=== PATIENT | female | born 1980 | race Asian ===

== ENCOUNTER 2016-10-03 07:40 | Inpatient (IN) | payer SELFPAY ==
[~2016-10-03] VITALS: Ht 160 cm; Wt 68.0 kg
[2016-10-03] MEDS ORDERED: LACTATED RINGERS 1,000 ML IV SCH (08:31)
[2016-10-03] MEDS ORDERED: IBUPROFEN 800 MG TAB PO PRN (08:35)
--- NOTE | 2016-10-03 08:43 | NUR ---
PATIENT HAS BEEN SCREENED AND CATEGORIZED LOW NUTRITION RISK. PATIENT WILL BE SEEN WITHIN 7 DAYS OF ADMISSION. 10/09/[address]
[2016-10-03 09:01] LABS: BASOPHILS % (AUTO) 0.5 % (0.0-2.0); EOSINOPHILS # (AUTO) 0.1 K/uL (0-0.4); EOSINOPHILS % (AUTO) 2.1 % (0.0-4.0); HEMATOCRIT 33.9 % (36-48); HEMOGLOBIN 10.7 g/dL (12.0-16.0); LYMPHOCYTES # (AUTO) 0.9 K/uL (2.5-16.5); LYMPHOCYTES % (AUTO) 13.1 % (20.5-51.1); MEAN CORPUSCULAR HEMOGLOBIN 25 pg (27-31); MEAN CORPUSCULAR HGB CONC 32 g/dL (33-37); MEAN CORPUSCULAR VOLUME 80 fL (80-94); MONOCYTES # (AUTO) 0.4 K/uL (0.8-1.0); MONOCYTES % (AUTO) 6.7 % (1.7-9.3); NEUTROPHILS # (AUTO) 5.2 K/uL (1.8-7.7); NEUTROPHILS % (AUTO) 77.6 % (42.2-75.2); RED BLOOD CELL COUNT(AUTO) 4.24 MIL/uL (4.20-5.40); RED CELL DISTRIBUTION WIDTH 16.6 % (11.6-13.7); WHITE BLOOD COUNT (AUTO) 6.6 K/uL (4.8-10.8)
[2016-10-03] MEDS ORDERED: PREN-546 PO (09:16)
[2016-10-03] MEDS ORDERED: IRON65TA11 PO (09:16)
[2016-10-03 09:21] LABS: PLATELET COUNT (AUTO) 5 K/uL (140-450)
[2016-10-03 09:24] LABS: APPEARANCE,URINE CLEAR (CLEAR); BILIRUBIN,URINE NEGATIVE (NEGATIVE); BLOOD, URINE NEGATIVE (NEGATIVE); COLOR,URINE YELLOW (YELLOW); LEUKOCYTE ESTERASE ,URINE NEGATIVE (NEGATIVE); NITRITE, URINE NEGATIVE (NEGATIVE); PROTEIN,URINE NEGATIVE (NEGATIVE); UGLUCOSE NEGATIVE (NEGATIVE); UROBILINOGEN,URINE 0.2 EU/dL (0.2 - 1)
[2016-10-03 09:25] VITALS: BP 113/78
[2016-10-03 10:09] LABS: BACTERIA,URINE 1+ /HPF (None Seen); RBC,URINE NONE SEEN /HPF (0-5); SQUAMOUS EPITHELIAL CELL,UR 0-3 (FEW) /LPF (0-3 (FEW)); WBC,URINE 0-5 (RARE) /HPF (0-5)
[2016-10-03] MEDS ORDERED: TRIAMCINOLONE 40 MG/ML 5ML VIAL ONE (14:56)
[2016-10-03] MEDS ORDERED: OXYTOCIN 10 UNITS/ML VIAL ONE (14:57)
[2016-10-03] MEDS ORDERED: PROPOFOL 200 MG/20 ML VIAL IV ONE (15:30)
[2016-10-03] MEDS ORDERED: ONDANSETRON 4 MG/2 ML VIAL IVP ONE (15:30)
[2016-10-03] MEDS ORDERED: SUCCINYLCHOLINE CHLORIDE 200 MG/10 ML VIAL IV ONE (15:30)
[2016-10-03] MEDS ORDERED: DEXAMETHASONE 4 MG/ML VIAL IVP ONE (15:30)
[2016-10-03] MEDS ORDERED: MIDAZOLAM 2 MG/2 ML VIAL ONE (15:37)
[2016-10-03] MEDS ORDERED: MEPERIDINE 50 MG/ML SYR ONE (15:38)
[2016-10-03] MEDS ORDERED: fentaNYL 0.05 MG/ML VIAL ONE (15:38)
[2016-10-03] MEDS ORDERED: ONDANSETRON 4 MG/2 ML VIAL IVP PRN (16:45)
[2016-10-03] MEDS ORDERED: diphenhydrAMINE 50 MG/ML VIAL IVP PRN (16:45)
[2016-10-03] MEDS ORDERED: MEPERIDINE 25 MG/ML SYR IVP PRN (16:45)
[2016-10-03] MEDS: HYDROmorphone 1 MG/ML AMP IVP PRN ×4 (17:25→17:55)
[2016-10-03] MEDS ORDERED: HYDROmorphone PFS 2 MG/ML SYR ONE (17:28)
[2016-10-03] MEDS: OXYTOCIN 20 UNITS/LR PREMIX 1,000 ML IV SCH (20:58)
[2016-10-03] MEDS ORDERED: OXYTOCIN 20 UNITS/LR PREMIX 1,000 ML IV SCH (23:45)
[2016-10-04] MEDS ORDERED: OXYTOCIN 20 UNITS/LR PREMIX 1,000 ML IV SCH (01:03)
[2016-10-04] MEDS ORDERED: HYDROcodone/APAP 5/325 MG 1 TAB TAB PO PRN (01:05)
[2016-10-04] MEDS ORDERED: TRIMETHOBENZAMIDE 200 MG/2 ML SYR IM PRN (01:05)
[2016-10-04] MEDS ORDERED: IBUPROFEN 800 MG TAB PO PRN (01:05)
[2016-10-04] MEDS ORDERED: METHYLERGONOVINE 0.2 MG/ML AMP IM PRN (01:05)
[2016-10-04] MEDS ORDERED: MEASLES, MUMPS, AND RUBELLA 1 VIAL SQVAC PRN (01:05)
[2016-10-04] MEDS ORDERED: TEMAZEPAM 15 MG CAP PO PRN (01:05)
[2016-10-04] MEDS ORDERED: SIMETHICONE 80 MG TAB.CHEW PO PRN (01:05)
[2016-10-04] MEDS: OXYTOCIN 20 UNITS/LR PREMIX 1,000 ML IV SCH (09:00)
[2016-10-04] MEDS: METOCLOPRAMIDE 10 MG TAB PO SCH ×4 (09:00→20:50)
[2016-10-04 10:05] LABS: HEMATOCRIT 21.6 % (36-48); HEMOGLOBIN 7.1 g/dL (12.0-16.0); MEAN CORPUSCULAR HEMOGLOBIN 27 pg (27-31); MEAN CORPUSCULAR HGB CONC 33 g/dL (33-37); MEAN CORPUSCULAR VOLUME 83 fL (80-94); RED BLOOD CELL COUNT(AUTO) 2.62 MIL/uL (4.20-5.40); RED CELL DISTRIBUTION WIDTH 16.1 % (11.6-13.7); WHITE BLOOD COUNT (AUTO) 10.3 K/uL (4.8-10.8)
[2016-10-04 10:50] LABS: HIV RAPID SCREEN NON-REACTIVE (NON REACTIV)
[2016-10-04 10:57] LABS: PLATELET COUNT (AUTO) 8 K/uL (140-450)
[2016-10-04 10:58] LABS: BAND % (MANUAL) 2 % (0-8); LYMPHOCYTES % (MANUAL) 15 % (20-46); MONOCYTES % (MANUAL) 3 % (5-12); NEUTROPHILS % (MANUAL) 80 (43-65); PLATELET ESTIMATE DECREASED
[2016-10-04] MEDS: oxyCODONE/APAP 5/325 MG 1 TAB TAB PO PRN ×2 (11:20→20:50)
[2016-10-04 20:26] LABS: BASOPHILS # (AUTO) 0.1 K/uL (0.00-0.22); BASOPHILS % (AUTO) 0.5 % (0.0-2.0); EOSINOPHILS # (AUTO) 0.2 K/uL (0-0.4); EOSINOPHILS % (AUTO) 1.3 % (0.0-4.0); HEMATOCRIT 21.7 % (36-48); HEMOGLOBIN 7.1 g/dL (12.0-16.0); LYMPHOCYTES % (AUTO) 7.6 % (20.5-51.1); MEAN CORPUSCULAR HEMOGLOBIN 27 pg (27-31); MEAN CORPUSCULAR HGB CONC 33 g/dL (33-37); MEAN CORPUSCULAR VOLUME 82 fL (80-94); MONOCYTES # (AUTO) 0.6 K/uL (0.8-1.0); MONOCYTES % (AUTO) 4.6 % (1.7-9.3); RED BLOOD CELL COUNT(AUTO) 2.65 MIL/uL (4.20-5.40); RED CELL DISTRIBUTION WIDTH 16.1 % (11.6-13.7); WHITE BLOOD COUNT (AUTO) 12.9 K/uL (4.8-10.8)
[2016-10-04 20:36] LABS: PLATELET COUNT (AUTO) 6 K/uL (140-450)
[2016-10-04] MEDS: DOCUSATE SOD/SENNA 50/8.6 MG 1 TAB PO SCH (20:49)
[2016-10-04 21:43] LABS: RAPID PLASMA REAGIN NON-REACTIVE (Non Reactiv)
[2016-10-05] MEDS ORDERED: predniSONE 20 MG TAB PO SCH ×2 (01:40→18:32)
[2016-10-05] MEDS ORDERED: predniSONE 20 MG TAB ONE (02:04)
[2016-10-05] MEDS: oxyCODONE/APAP 5/325 MG 1 TAB TAB PO PRN (02:43)
[2016-10-05] MEDS: FERROUS SULFATE 325 MG TABEC PO SCH ×2 (07:49→16:48)
[2016-10-05] MEDS: METOCLOPRAMIDE 10 MG TAB PO SCH ×4 (08:38→20:38)
[2016-10-05 18:14] LABS: BASOPHILS % (AUTO) 0.1 % (0.0-2.0); EOSINOPHILS # (AUTO) 0.2 K/uL (0-0.4); EOSINOPHILS % (AUTO) 1.5 % (0.0-4.0); HEMATOCRIT 22.4 % (36-48); HEMOGLOBIN 7.6 g/dL (12.0-16.0); LYMPHOCYTES # (AUTO) 1.1 K/uL (2.5-16.5); MEAN CORPUSCULAR HEMOGLOBIN 28 pg (27-31); MEAN CORPUSCULAR HGB CONC 34 g/dL (33-37); MEAN CORPUSCULAR VOLUME 83 fL (80-94); MONOCYTES # (AUTO) 0.8 K/uL (0.8-1.0); MONOCYTES % (AUTO) 4.8 % (1.7-9.3); NEUTROPHILS # (AUTO) 13.8 K/uL (1.8-7.7); NEUTROPHILS % (AUTO) 86.6 % (42.2-75.2); RED CELL DISTRIBUTION WIDTH 17.4 % (11.6-13.7); WHITE BLOOD COUNT (AUTO) 15.9 K/uL (4.8-10.8)
[2016-10-05 18:18] LABS: PLATELET COUNT (AUTO) 4 K/uL (140-450)
[2016-10-05] MEDS: DOCUSATE SOD/SENNA 50/8.6 MG 1 TAB PO SCH (20:38)
[2016-10-06] MEDS: FERROUS SULFATE 325 MG TABEC PO SCH (08:33)
[2016-10-06] MEDS: METOCLOPRAMIDE 10 MG TAB PO SCH ×2 (08:33→13:05)
[2016-10-06] MEDS ORDERED: predniSONE 20 MG TAB PO SCH (09:00)
== END 2016-10-06 13:40 | disposition home or self-care (01) | DRG 765 ==
LOC: MLD 07:40 → MFCC 08:01
PROVIDERS: ADMIT Obstetrics & Gynecology; ATTEND Obstetrics & Gynecology
PROC: 30233R1 Transfusion of Nonautologous Platelets into Peripheral Vein, Percutaneous Approach (ICD-10-PCS; 2016-10-03)
PROC: 10D00Z1 Extraction of Products of Conception, Low, Open Approach (ICD-10-PCS; principal; 2016-10-03 16:00)
PROC: 30233N1 Transfusion of Nonautologous Red Blood Cells into Peripheral Vein, Percutaneous Approach (ICD-10-PCS; 2016-10-04)
DX: O99.12 Other diseases of the blood and blood-forming organs and certain disorders involving the immune mechanism complicating childbirth (principal); D69.3 Immune thrombocytopenic purpura; O09.519 Supervision of elderly primigravida, unspecified trimester; Z37.0 Single live birth; Z28.21 Immunization not carried out because of patient refusal; Z3A.38 38 weeks gestation of pregnancy
CPT/HCPCS: 36415; 51702; 81001; 85025; 85049; 86592; 86886; 86900; 86901; 86920; 87086; J0330; J0690; J1100; J1170; J2175; J2250; J2405; J2590; J2704; J3010; J3301; J7030; J7060; J7120; J7512; J8597; P9016; P9035